=== PATIENT | female | born 1975 | race Caucasian/White ===

== ENCOUNTER 2022-04-29 13:46 | Emergency (ER) | payer BC, SELFPAY ==
--- NOTE | ~2022-04-29 | CT_ITS ---
EXAMINATION: CT brain wo con DATE: 04/29/2022 18:23 INDICATION: syncope and head trauma . TECHNIQUE: Computed tomography (CT) of the head was performed without intravenous contrast. The mA wa s adjusted according to patient size. Iterative reconstruction technique was employed. The dose-lengt h product was 605.33 mGy-cm. COMPARISON: None FINDINGS: No acute intracranial hemorrhage or extra-axial fluid collection. No hydrocephalus, mass, or herniation. No acute ischemic infarct. Unremarkable dural venous sinus attenuation. No acute osseous abnormality. Pansinus mucosal thickening, air-fluid levels, and aerated secretions aerated spaces are clear. IMPRESSION: No acute intracranial process. Paranasal sinus findings may reflect acute sinusitis in the appropriat e context. Reviewed, dictated and finalized at location K. Y CHILDHOOD ASSOCIATE TEACHER IMPRESSION: No acute intracranial process. Paranasal sinus findings may reflect acute sinus itis in the appropriate context.
--- NOTE | ~2022-04-29 | CT_ITS ---
EXAMINATION: CT cervical spine wo con DATE: 04/29/2022 18:26 INDICATION: syncope and head trauma TECHNIQUE: Computed tomography (CT) of the cervical spine was performed without intravenous contrast. Automated exposure control and iterative reconstruction technique were employed. The dose-length pro duct was 294.01 mGy-cm. COMPARISON: None FINDINGS: Vertebral Body Alignment: Intact. Reversed lordosis, which can occur with positioning or muscle spasm . Craniocervical and atlantoaxial alignment: Mild degenerative change. Alignment intact. Osseous structures/fracture: No evidence of a lytic or blastic process in the visualized spine. No e vidence of acute fracture. Cervical soft tissues: The paraspinal soft tissues planes are maintained. Degenerative changes: Degenerative changes, without severe neural foraminal or central canal narrowin g. IMPRESSION: No acute fracture or traumatic malalignment in the cervical spine. Reviewed, dictated and finalized at location K. POULE WASHING MACHINE OPERATOR
--- NOTE | 2022-04-29 13:49 | ECG_ITS ---
Measurements Intervals [place] Rate: 64 P: 72 OH: 134 QRS: 60 QRSD: 83 T: 51 QT: 434 QTc: 450 Interpretive Statements SINUS RHYTHM WITH SINUS ARRHYTHMIA POSSIBLE LEFT ATRIAL ENLARGEMENT BORDERLINE ECG NO PREVIOUS ECG AVAILABLE FOR COMPARISON Electronically Signed On 04-29-2022 14:12:10 FENCE BUILDER by Vincent Martínez D.O.
[2022-04-29 13:50] VITALS: BP 129/72; PULSE 73; RESP 18; TEMP 36.4; O2SAT 99
[2022-04-29 14:15] LABS: Basophils Absolute Auto 0.1 K/mm3 (0.0-0.1); Basophils Percent Auto 0.8 % (0.2-1.2); Eosinophils Absolute Auto 0.2 K/mm3 (0-0.3); Eosinophils Percent Auto 1.9 % (0-4.4); Hematocrit 40.4 % (37.0-47.0); Hemoglobin 13.6 g/dL (12.0-15.0); Immature Granulocyte Absolute 0.06 K/mm3 (0.00-0.031); Immature Granulocyte Percent A 0.6 % (0-0.5); Lymphocytes Absolute Auto 2.19 K/mm3 (0.9-3.2); Lymphocytes Percent Auto 20.6 % (18.3-44.2); Mean Corpuscular HGB Conc 33.7 g/dl (32-36); Mean Corpuscular Hemoglobin 32.1 pg (26-34); Mean Corpuscular Volume 95.3 fl (80-100); Mean Platelet Volume 9.6 fl (7.4-10.4); Monocytes Absolute Auto 0.7 K/mm3 (0.1-0.6); Monocytes Percent Auto 6.5 % (2.6-8.5); Neutrophils Absolute Auto 7.4 K/mm3 (1.3-6.7); Neutrophils Percent Auto 69.6 % (45.5-73.1); Platelet Count Result 357 k/mm3 (150-375); Red Blood Count 4.24 M/mm3 (4.2-5.4); Red Cell Distribution Width 13.2 % (11.5-14.5); White Blood Count 10.6 K/mm3 (4.5-10.0)
[2022-04-29 14:24] LABS: Alanine Aminotransferase 26 U/L (6-35); Alkaline Phosphatase 93 U/L (38-126); Anion Gap 12 mmol/L (8-16); Aspartate Amino Transferase 34 U/L (14-36); Bilirubin,Total 0.4 mg/dL (0.2-1.3); Blood Urea Nitrogen 11 mg/dL (7-17); Calcium 8.8 mg/dL (8.4-10.2); Carbon Dioxide 24 mmol/L (22-30); Chloride 103 mmol/L (98-107); Estimated CRCL calculation 85 ml/min; Estimated Glomerular Filt Rate > 60; Glucose 93 mg/dL (65-110); Potassium 4.2 mmol/L (3.4-5.0); Sodium 139 mmol/L (137-145)
[2022-04-29 17:05] VITALS: BP 122/62; PULSE 64; RESP 18; O2SAT 100
--- NOTE | 2022-04-29 17:47 | ED.GENADULT ---
HPI - General Adult General Chief complaint: Syncope Stated complaint: passed out Time Seen by Provider: 04/29/22 17:10 History of Present Illness HPI narrative: 46-year-old female presents for evaluation after having a syncopal event. Patient states that she was doing somebody's hair and began to feel strange and tingly. She thought she may be about to have a panic attack and took one half of a Xanax tablet. Shortly afterwards she woke up on the floor. Patient struck her left orbit on the floor and noticed bruising around her left eye. Patient states that this has happened in the past but it has been 1 to 2 years since last syncopal event. She denies chest pain, shortness of breath prior to the incident. She is otherwise healthy. No recent travel, no hormones and she is not a smoker although she does vape. Patient has admitted to me that she drinks 0 water. Fluid consumption consists of between 1 to 2 cans of diet soda per day and there is no other fluid intake. Related Data Home Medications Medication Instructions Recorded Confirmed sertraline 50 mg tablet 50 mg PO DAILY 06/17/21 Allergies Allergy/AdvReac Type Severity Reaction Status Date / Time No Known Allergies Allergy Unverified 06/17/21 14:39 Review of Systems Review of Systems: CONSTITUTIONAL: Denies fever, chills, or sweats. EYES: Denies visual changes, redness, or discharge. ENT: Denies rhinorrhea, congestion, sore throat, or otalgia. CARDIOVASCULAR: Denies chest pain, palpitations, or edema. RESPIRATORY: Denies cough or dyspnea. GASTROINTESTINAL: Denies abdominal pain, nausea, vomiting, or diarrhea. GENITOURINARY: Denies dysuria or hematuria. SKIN: Denies rash or itching. MUSCULOSKELETAL: Denies back pain, joint pain, or myalgia. NEUROLOGIC: Denies headache, numbness, or weakness. PSYCHIATRIC: Denies anxiety or depression. [facility] Surgical History Surgical History (Updated 06/17/21 @ 14:40 by Samina Gonsalez) History of Exam Narrative: GENERAL: Well-appearing, well-nourished, and in no acute distress. HEAD: Normocephalic, there is a small amount of bruising to the lateral left orbit EYES: PERRLA and EOMI. ENT: Nares clear, no rhinorrhea or epistaxis. Mucous membranes moist. NECK: Supple. CHEST: Clear to auscultation. No respiratory distress. HEART: Regular rate and rhythm. No murmur heard. Normal peripheral pulses. ABDOMEN: Soft, nontender, nondistended, normal active bowel sounds. EXTREMITIES: Normal range of motion. No edema. SKIN: Warm, dry, no rash. NEURO: No focal deficits. Alert and oriented x3. PSYCH: Normal mood and affect. Course Vital Signs Vital signs: Vital Signs Temperature 97.6 F 04/29/22 13:50 Pulse Rate 73 04/29/22 13:50 Respiratory Rate 18 04/29/22 13:50 Blood Pressure 129/72 04/29/22 13:50 Pulse Oximetry 99 04/29/22 13:50 Oxygen Delivery Room Air 04/29/22 13:50 Temperature 97.6 F 04/29/22 13:50 Pulse Rate 60 04/29/22 19:37 Respiratory Rate 14 04/29/22 19:37 Blood Pressure 111/77 04/29/22 19:37 Pulse Oximetry 100 04/29/22 19:37 Oxygen Delivery Room Air 04/29/22 13:50 Medical Decision Making MDM Narrative Medical decision making narrative: Cardiac work-up and CT of head and C-spine has been ordered. Also give IV fluid hydration. Patient with minimal cardiac risk factors and I feel dehydration is a likely cause of her recurrent syncope. Explained all lab results and imaging results to patient and family. She agrees to increase fluid hydration. She is stable for DC home. Vital Signs Vital Signs: Vital Signs Temperature 97.6 F 04/29/22 13:50 Pulse Rate 73 04/29/22 13:50 Respiratory Rate 18 04/29/22 13:50 Blood Pressure 129/72 04/29/22 13:50 Pulse Oximetry 99 04/29/22 13:50 Oxygen Delivery Room Air 04/29/22 13:50 Temperature 97.6 F 04/29/22 13:50 Pulse Rate 60 04/29/22 19:37 Respiratory Rate 14 04/29/22 19:37 Bloo
[2022-04-29] MEDS: SODIUM CHLORIDE 0.9% IV 500 ML 999 ML IV CONT (17:54)
[2022-04-29 18:30] VITALS: BP 109/64; PULSE 64
[2022-04-29 18:32] VITALS: BP 112/71; PULSE 65
[2022-04-29 18:33] VITALS: BP 112/72; PULSE 66
[2022-04-29 18:43] LABS: Troponin I < 0.012 ng/mL (0.000-0.034)
[2022-04-29 19:37] VITALS: BP 111/77; PULSE 60; RESP 14; O2SAT 100
== END 2022-04-29 19:35 | disposition home or self-care (01) ==
PROVIDERS: Emergency Medicine; Emergency Provider Emergency Medicine; PCP Physician Assistant
DX: I95.1 Orthostatic hypotension (principal); E86.0 Dehydration; R94.31 Abnormal electrocardiogram [ECG] [EKG]
CPT/HCPCS: 36415; 70450; 72125; 80053; 81025; 84484; 85025; 93005; 96360; 99284; J7040

== ENCOUNTER 2022-10-30 12:15 | Emergency (ER) | payer BC, SELFPAY ==
[2022-10-30 12:26] VITALS: BP 141/87; PULSE 76; RESP 16; TEMP 36.6; O2SAT 99
--- NOTE | 2022-10-30 12:40 | ED.SKABFB ---
HPI - Skin/Abscess/Foreign Bdy General Chief complaint: Skin/Abscess/Foreign Body Stated complaint: Painful rash; left armpit and down left arm Source: patient and RN notes reviewed History of Present Illness HPI narrative: 46 yo F presents to urgent care with complaints of painful rash to her left axilla area. Pt states she applied an OTC, skin tag removal medication, to her left axilla on Thursday night. Pt states she believes she had a reaction b/c her rash has been getting worse ever since. Pt states today, new clear blisters have appears to her left upper, inner, arm. Pt feels like her right arm is swollen and feels a weird sensation going down left arm. Denies any fevers, chills, chest pain, SOB, or drainage from the area. Pt's PCP called her in some doxycycline yesterday with no relief. Related Data Home Medications Medication Instructions Recorded Confirmed doxycycline hyclate 100 mg capsule mg 10/30/22 Allergies Allergy/AdvReac Type Severity Reaction Status Date / Time No Known Allergies Allergy Unverified 06/17/21 14:39 Review of Systems Review of Systems: Pertinent positives and pertinent negatives per HPI. [facility] Surgical History Surgical History (Updated 06/17/21 @ 14:40 by Samina Gonsalez) History of Comments At the time of my signature, I reviewed and agree with the nursing past medical, surgical, social, and family history. There is no relevant family history pertinent to the patient complaint. Exam Narrative: GENERAL: This is a well-nourished, well-developed patient, in no apparent distress. HEAD: normocephalic, atraumatic. EYES: Sclera clear/white. Vision is grossly intact. EARS: External ears normal, auditory canals clear and without drainage. Hearing grossly intact. NOSE: External nose normal with no obvious nasal discharge, nares without redness, no rhinorrhea. THROAT: Mucous membranes moist, posterior pharynx clear. NECK: Neck supple, non-tender without lymphadenopathy, masses or thyromegaly. CARDIOVASCULAR: Regular rate and rhythm without murmurs, gallops, or rubs. RESPIRATORY: Clear to auscultation. Breath sounds equal bilaterally. No wheezes, rales, or rhonchi. GASTROINTESTINAL: Abdomen soft, non-tender, nondistended. Bowel sounds are active. No hepato-splenomegaly, or palpable masses. No guarding. SKIN: erythremic area to left axilla with clear blisters noted, clustered and also noted to left upper, inner, arm. NEURO: awake, alert, and oriented to person, place and time. There were no obvious focal neurologic abnormalities. Course Course Level of Care: Express Care Visit Vital Signs Vital signs: Vital Signs Temperature 97.9 F 10/30/22 12:26 Pulse Rate 76 10/30/22 12:26 Respiratory Rate 16 10/30/22 12:26 Blood Pressure 141/87 H 10/30/22 12:26 Pulse Oximetry 99 10/30/22 12:26 Oxygen Delivery Room Air 10/30/22 12:26 Temperature 97.9 F 10/30/22 12:26 Pulse Rate 76 10/30/22 12:26 Respiratory Rate 16 10/30/22 12:26 Blood Pressure 141/87 H 10/30/22 12:26 Pulse Oximetry 99 10/30/22 12:26 Oxygen Delivery Room Air 10/30/22 12:26 Reviewed MDM - Skin/Abscess/Foreign Bdy MDM Narrative Medical decision making narrative: May stop taking the Doxycycline. Start taking the cephalexin today and steroids tomorrow. go to the ER with any new or worsening symptoms. Differential Diagnosis Differential diagnosis: Likely abscess of skin or subcutaneous tissue, urticaria, allergic reaction to drug and cellulitis Critical Care Time Critical Care Time Critical Care Time: No Discharge Plan Discharge Clinical Impression: Contact dermatitis Qualifiers: Contact dermatitis type: unspecified Contact dermatitis trigger: unspecified trigger Qualified Code(s): L25.9 - Unspecified contact dermatitis, unspecified cause Patient Disposition: Home, Self-Care Condition: Stable Instructions: Antibiotic Form, Contact Dermatit
--- NOTE | 2022-10-30 13:02 | PC.NURSE ---
provider informed this RN did not see prednisone order prior to discharge. Provider declines calling pt to return as she also prescribed. PO prednisone not given. Jessica Alvarez
== END 2022-10-30 13:04 | disposition home or self-care (01) ==
PROVIDERS: Emergency Provider Nurse Practitioner Family; PCP Physician Assistant
DX: L25.9 Unspecified contact dermatitis, unspecified cause (principal)
CPT/HCPCS: 99213; G0463

== ENCOUNTER 2022-11-02 09:42 | Emergency (ER) | payer BC, SELFPAY ==
[2022-11-02 09:49] VITALS: BP 121/75; PULSE 85; RESP 16; TEMP 36.4; O2SAT 98
--- NOTE | 2022-11-02 09:55 | ED.SKABFB ---
HPI - Skin/Abscess/Foreign Bdy General Chief complaint: Skin/Abscess/Foreign Body Stated complaint: bacterial infection with abscess Time Seen by Provider: 11/02/22 09:55 Source: patient Mode of arrival: ambulatory Limitations: no limitations History of Present Illness HPI narrative: 46 years old white female came from home by private car complaining of painful rash at the left axilla started 4 days ago, patient have a chemical sticker which was placed on the skin tag at the left axilla, 1 day later started having irritation and pain at that area, subsequently developed blisters, started on doxycycline by her family physician without any improvement, 1 day later went to urgent care and started on cephalexin and prednisone for the last 3 days without any improvement. Currently patient denies any fever, chills, nausea, vomiting. MD complaint: rash Related Data Home Medications Medication Instructions Recorded Confirmed doxycycline hyclate 100 mg capsule mg 10/30/22 Allergies Allergy/AdvReac Type Severity Reaction Status Date / Time No Known Allergies Allergy Unverified 11/02/22 09:54 Review of Systems Review of Systems: All systems reviewed & are unremarkable except as noted in HPI and below PMFSH Surgical History Surgical History History of Exam Narrative: General appearance: Well-developed, well-nourished Skin: Normal color, multiple blisters in groups on erythematous base left axilla and left upper back, does not cross the midline anteriorly or posteriorly consistent with shingles Head: Normocephalic, nontraumatic Eyes: Clear conjunctiva ENT: Oropharynx normal, ears normal, nose normal Neck: Supple, nontender Chest and respiratory: Airway patent, no respiratory distress, no accessory muscle use Heart: Regular rate/rhythm Abdomen: Soft, nontender, no organomegaly, quiet bowel sounds Vascular: Normal peripheral pulses, normal capillary refill. Musculoskeletal: Normal range of motion, nontender back Neurologic: Alert and oriented ?3, TRANSMISSION ENGINEER is normal as tested, no gross motor deficit Course Reevaluation(s) Reevaluation #1: Patient feeling much better after had the right diagnosis and was advised to take Tylenol, ibuprofen as needed. Date: 11/02/22 Time: 10:15 Vital Signs Vital signs: Vital Signs Temperature 36.4 C 11/02/22 09:49 Pulse Rate 85 11/02/22 09:49 Respiratory Rate 16 11/02/22 09:49 Blood Pressure 121/75 11/02/22 09:49 Pulse Oximetry 98 11/02/22 09:49 Oxygen Delivery Room Air 11/02/22 09:49 Temperature 36.4 C 11/02/22 09:49 Pulse Rate 85 11/02/22 09:49 Respiratory Rate 16 11/02/22 09:49 Blood Pressure 121/75 11/02/22 09:49 Pulse Oximetry 98 11/02/22 09:49 Oxygen Delivery Room Air 11/02/22 09:49 MDM - Skin/Abscess/Foreign Bdy MDM Narrative Medical decision making narrative: Patient presents with painful skin rash left axilla after chemical patch to remove a skin tag at that area. Patient was started on doxycycline which stopped later and started on cephalexin and the prednisone for the last 3 to 4 days without any improvement. Physical examination was consistent with shingles which high likely occurred coincidentally at the same time patient having this chemical patch on her left axilla. Shingle has nothing to do with the chemical patch. Patient was advised to stop all the antibiotic and to start the Valtrex as soon as possible. And calamine lotion [id number], Tylenol, ibuprofen as needed. No labs or imaging are required at this time. Differential Diagnosis Differential diagnosis: Likely herpes zo
== END 2022-11-02 10:36 | disposition home or self-care (01) ==
PROVIDERS: Emergency Provider Emergency Medicine; PCP Physician Assistant
DX: B02.9 Zoster without complications (principal)
CPT/HCPCS: 99283

== ENCOUNTER 2024-06-29 13:18 | Outpatient (CLI) | payer BC, SELFPAY ==
--- NOTE | ~2024-06-29 | MM_ITS ---
EXAMINATION: MM screening tiffanie BI w юлия HISTORY: Screening TECHNIQUE: Craniocaudal and mediolateral oblique 3-D tomosynthesis images were obtained and synthetic 2-D images were generated. CAD analysis was submitted and interpreted. COMPARISON: No prior mammogram is available for comparison at this institution. BREAST PARENCHYMAL COMPOSITION: Not dense: There are scattered areas of fibroglandular density. FINDINGS: There are multiple partially obscured masses in the right breast with superimposed fibrogla ndular tissue. There are no suspicious masses, calcifications or architectural distortion in the left breast to suggest malignancy. IMPRESSION: 1. Multiple scattered right breast masses obscured by fibroglandular tissue. 2. Additional mammographic views and possible breast ultrasound are recommended. BI-RADS Category 0: Incomplete: Needs additional imaging evaluation. Reviewed, dictated and finalized at location A. S AND SERVICE CONSULTANT IMPRESSION: 1. Multiple scattered right breast masses obscured by fibroglandular tissue. 2. Additional mammographic views and possible breast ultrasound are recommended . BI-RADS Category 0: Incomplete: Needs additional imaging evaluation.
== END 2024-06-29 13:19 | disposition home or self-care (01) ==
LOC: MICIMG 13:19
PROVIDERS: PCP Physician Assistant; Visit Provider Nurse Practitioner Family
DX: Z12.31 Encounter for screening mammogram for malignant neoplasm of breast (principal); R92.8 Other abnormal and inconclusive findings on diagnostic imaging of breast
CPT/HCPCS: 77063; 77067

== ENCOUNTER 2024-08-08 00:40 | Day surgery (SDC) | payer BC, SELFPAY ==
[2024-07-27 10:38] VITALS: BMI 28.3
[2024-08-08 11:30] VITALS: BP 114/76; PULSE 79; RESP 16; TEMP 36.3; O2SAT 99; BMI 29.1
[2024-08-08 11:45] LABS: BEDSIDEPREGUCG Negative (Negative)
[2024-08-08] MEDS: LACTATED RINGERS 1,000 ML 150 ML IV CONT (11:52)
--- NOTE | 2024-08-08 12:07 | WPDANESEPPF ---
Anes - Initial Pre Proc Eval Procedure: Operation Date: 08/08/24 13:00 Proposed Procedures p Colonoscopy - Nhan Freire MD Date/Time: 08/08/24 12:07 Surgeon: Nhan Freire MD Pre Op Diagnosis: fecal abnormalities Patient Data Age: 48 Gender: F Height: 1.63 m Weight: 77 kg Last Vital Signs Temp 36.3 C L 08/08/24 11:30 Pulse 79 08/08/24 11:30 Resp 16 08/08/24 11:30 BP 114/76 08/08/24 11:30 Pulse Ox 99 08/08/24 11:30 O2 Del Method Room Air 08/08/24 11:30 Allergies Allergy/AdvReac Type Severity Reaction Status Date / Time No Known Allergies Allergy Verified 08/08/24 11:38 Home Medications ?Medication ?Instructions ?Recorded ?Confirmed ?Type valacyclovir 1 gram tablet 1,000 mg PO Q8H #21 tabs 11/02/22 08/08/24 Rx (Valtrex) alprazolam 0.25 mg tablet (Xanax) 0.25 mg PO DAILY 01/28/24 08/08/24 History folic acid 20 mg capsule 20 mg PO DAILY 01/28/24 08/08/24 History multivitamin (Daily Multi-Vitamin 1 tablet PO DAILY 01/28/24 08/08/24 History tablet) sertraline 50 mg tablet 50 mg PO DAILY 01/28/24 08/08/24 History terbinafine HCl 250 mg tablet 250 mg PO DAILY 01/28/24 08/08/24 History Laboratory Tests 08/08/24 11:30 POC Urine HCG, Qual Negative (Negative) Patient hx anesthesia problems: none Family hx anesthesia problems: none Results Review: All pre-operative results and documents have been reviewed as part of the pre-operative evaluation. [facility] Past Medical History Medical History Anxiety Surgical History Surgical History Delivery by section x 2 History of Family History Family History Grandparent Acute myocardial infarction paternal grandfather Daughter Cystic fibrosis Mother Hypertension Thyroid disease Father Hypertension Sibling Hypertension Social History Social History Smoking status: Current every day smoker Tobacco type: cigarettes and e-cigarettes/vaping Alcohol intake: current Substance use: never Substance use type: does not use Anes - Eval Final PreProcedure Day of Procedure 08/08/24 12:07 Patient weight: overweight Heart: regular rate and rhythm Lungs: clear to auscultation Airway: Mallampati scale class II Neurological: alert and oriented Last oral intake: >/= 8 hours ASA classification: II Emergent: no Anesthetic plan: proceed Anesthesia type and monitoring: general GIVS and standard monitoring Results Review: All pre-operative results and documents have been reviewed as part of the pre-operative evaluation. Informed Consent: The patient's anesthetic plan and its attendant risks and benefits were discussed with the patient/family/POA. Questions were solicited and answers provided to the satisfaction of the patient/family/POA.
--- NOTE | 2024-08-08 12:51 | PM.IMHP ---
H&P: HPI History of Present Illness Date/Time: 08/08/24 12:51 Chief Complaint: Screening colonoscopy Narrative: This is the patient's first colonoscopy. There are no GI symptoms and there is no family history of colorectal cancer. Review of Systems Review of Systems: All systems reviewed & are unremarkable except as noted in HPI and below PMFSH Past Medical History Medical History Anxiety Surgical History Surgical History Delivery by section x 2 History of Family History Family History Grandparent Acute myocardial infarction paternal grandfather Daughter Cystic fibrosis Mother Hypertension Thyroid disease Father Hypertension Sibling Hypertension Social History Social History Smoking status: Current every day smoker Tobacco type: cigarettes and e-cigarettes/vaping Alcohol intake: current Substance use: never Substance use type: does not use Meds Home Medications and Allergies Home Medications ?Medication ?Instructions ?Recorded ?Confirmed ?Type valacyclovir 1 gram tablet 1,000 mg PO Q8H #21 tabs 11/02/22 08/08/24 Rx (Valtrex) alprazolam 0.25 mg tablet (Xanax) 0.25 mg PO DAILY 01/28/24 08/08/24 History folic acid 20 mg capsule 20 mg PO DAILY 01/28/24 08/08/24 History multivitamin (Daily Multi-Vitamin 1 tablet PO DAILY 01/28/24 08/08/24 History tablet) sertraline 50 mg tablet 50 mg PO DAILY 01/28/24 08/08/24 History terbinafine HCl 250 mg tablet 250 mg PO DAILY 01/28/24 08/08/24 History Allergies Allergy/AdvReac Type Severity Reaction Status Date / Time No Known Allergies Allergy Verified 08/08/24 11:38 Vital Signs Vital Signs - 24 hr 08/08/24 11:30 Temperature 97.3 F L Pulse Rate 79 Respiratory Rate 16 Blood Pressure 114/76 Pulse Oximetry 99 Oxygen Delivery Room Air Exam Const: General: cooperative and healthy appearing Resp: Effort & Inspection: normal respiratory effort and able to speak in complete sentences Auscultation: clear to auscultation bilaterally Cardio: Rate: regular rate Rhythm: regular rhythm GI: Inspection: normal to inspection GI Palp: No No hepatosplenomegaly present Auscultation: normal bowel sounds Rectal Exam: deferred Skin: General skin exam: normal color Psych: Appearance: grossly normal Mental Status: mental status grossly normal Assessment and Plan Assessment and plan (1) Encounter for screening colonoscopy: Code(s): Z12.11 - Encounter for screening for malignant neoplasm of colon Status: Acute Assessment and Plan: The patient is deemed a good candidate for the procedure. Consent signed. Will proceed.
[2024-08-08] MEDS: EPINEPHrine INJ 1 MG/10 ML SYRINGE XX (13:19)
[2024-08-08 13:26] VITALS: BP 112/67; PULSE 76; RESP 20; O2SAT 99
[2024-08-08 13:36] VITALS: BP 115/71; PULSE 75; RESP 20; O2SAT 100
[2024-08-08 13:46] VITALS: BP 122/74; PULSE 69; RESP 20; O2SAT 100
== END 2024-08-08 14:00 | disposition home or self-care (01) ==
PROVIDERS: Anesthesiology; PCP Physician Assistant; Referring Provider Physician Assistant; Visit Provider Internal Medicine Gastroenterology
PROC: 0DJD8ZZ Inspection of Lower Intestinal Tract, Via Natural or Artificial Opening Endoscopic (ICD-10-PCS; CPT 45378; principal; 2024-08-08 13:00)
DX: Z12.11 Encounter for screening for malignant neoplasm of colon (principal); D12.4 Benign neoplasm of descending colon; D12.5 Benign neoplasm of sigmoid colon; K63.5 Polyp of colon; F17.210 Nicotine dependence, cigarettes, uncomplicated; F17.290 Nicotine dependence, other tobacco product, uncomplicated
CPT/HCPCS: 45381; 45385; 88305; J0171; J2003; J2704; J7120

== ENCOUNTER 2024-08-16 09:55 | Outpatient (CLI) | payer BC, SELFPAY ==
--- NOTE | ~2024-08-16 | MMUS_ITS ---
EXAMINATION: MM diagnostic tiffanie RT w юлия, US breast RT limited HISTORY: Right breast mass TECHNIQUE: Additional 3-D tomosynthesis images of the right breast were performed and synthetic 2-D i mages were generated. CAD analysis was submitted and interpreted. High resolution limited right breas t ultrasound was performed. COMPARISON: 06/29/2024, 02/23/2023 BREAST PARENCHYMAL COMPOSITION:Not Dense. There are scattered areas of fibroglandular density. FINDINGS: MAMMOGRAPHIC FINDINGS: Spot compression views demonstrate a persistent 8 mm ovoid mass at the upper to upper outer right angus ast. Probable additional 12 mm ovoid low-density mass in this region. ULTRASOUND: At the 10:00 position right breast, 3 cm from nipple, there is a 1.1 x 0.8 x 1.1 cm hypoechoic circum scribed parallel mass. No posterior shadowing. Also in this region, there is an additional 4 mm proba ble cyst. At the 11:00 position right breast, 3 cm from the nipple, there is a 6 x 4 x 8 mm mildly lo bulated cyst. IMPRESSION: 1.1 cm probable benign mass at the 10:00 position right breast, 3 cm from the nipple. Six-month follo w-up ultrasound recommended to reassess. Additional simple cysts, as above. No evidence for malignancy. BI-RADS category 3, probably benign findings. Reviewed, dictated and finalized at location . IMPRESSION: 1.1 cm probable benign mass at the 10:00 position right breast, 3 cm from the n ipple. Six-month follow-up ultrasound recommended to reassess. Additional simple cysts, as above. No evidence for malignancy. BI-RADS category 3, probably benign findings.
== END 2024-08-16 09:56 | disposition home or self-care (01) ==
LOC: MICIMG 09:56
PROVIDERS: PCP Physician Assistant; Visit Provider Nurse Practitioner Obstetrics & Gynecology
DX: R92.8 Other abnormal and inconclusive findings on diagnostic imaging of breast (principal)
CPT/HCPCS: 76642; 77061; 77065; G0279